=== PATIENT | female | born 1990 | race Caucasian/White ===

== ENCOUNTER 2023-06-03 00:10 | Emergency (ER) | payer BC, SELFPAY ==
[2023-06-03 00:10] VITALS: BMI 22.8
[2023-06-03 00:15] VITALS: BP 143/90
[2023-06-03 00:40] VITALS: BP 130/85
[2023-06-03 01:00] VITALS: BP 127/71
--- NOTE | 2023-06-03 01:39 | ED.GENMED ---
History of Present Illness
General
Chief Complaint: Allergic Reaction
Source: patient and spouse
Exam Limitations: none
Time Seen by Provider: 06/03/23 01:22
Nursing documentation reviewed up to this point in time: agreed with
Travel History
Have you had any contact with someone who has COVID-19?: No
Do you have any symptoms of coronavirus? Fever > 100 degrees, chills, cough, shortness of breath, sore throat, loss of taste or smell, muscle aches, or headache?: No
History of Present Illness
History of Present Illness:
This is a 32-year-old woman who underwent IVF procedure 1 week ago. She was started on progesterone suppositories 2 weeks ago. Other than this her only daily medication is levothyroxine.
For the past 2 days she complains of generalized hives, itching that are much worse at nighttime waking her from sleep. No history of similar episodes of hives in the past but she does admit to having 'sensitive skin' and uses Tide Free and clear
detergent. She does admit to occasionally using a fabric softener additive. She denies any new household products, no pets. No recent antibiotic use.
She denies cough no shortness of breath, no sore throat nor facial swelling. No abdominal pain, no nausea or vomiting, no diarrhea or constipation. No dysuria. No vaginal itching or discharge no bleeding.
She took Benadryl around 8:30 PM with moderate improvement but then awoke with generalized hives and itching.
She is scheduled for follow-up with her IVF specialist in the morning.
Past History
Past History
ED Past Medical History: Hypothyroidism
ED Past Surgical History: Cholecystectomy
Social History
Tobacco: Non-smoker
Alcohol: None
Drug: None
Personal:
Living: with family
Employment: Employed
Family History
Family History: Other (Noncontributory)
Phy Exam
Physical Exam
Physical Exam:
GENERAL: 32-year-old woman appears her stated age, awake and alert, appears mildly uncomfortable. Cooperative. Easily communicative. is accompanying.
EYE: anicteric
NECK: Supple, nontender, no meningismus, no significant adenopathy.
ENT: posterior pharynx is clear, oral mucosa is moist. No rhinorrhea. No angioedema.
CARDIAC: Regular rate and rhythm. no murmur.
LUNGS: Clear breath sounds bilaterally, no acute respiratory distress, no wheezes/rales/rhonchi
ABDOMEN: Soft, nondistended, without focal tenderness, normoactive BS.
NEUROLOGICAL: Alert and oriented x3, no focal neuro deficits. Gait is cano and steady.
SKIN: Warm and dry, skin intact. Generalized erythema with patchy urticarial rash globally to the posterior trunk, coalescent urticarial horizontal band anterior mid abdomen corresponding with waistband of sweatpants. Generalized erythema and
urticaria to bilateral arms and proximal lower legs.
MUSCULOSKELETAL: No C/C/E. peripheral pulses are full and equal b/l. No palpable tenderness.
PSYCH: Normal and appropriate interaction.
Course
Orders/Labs/Results
Orders:
Orders
06/03/23 01:37
Dexamethasone Sod Phosphate [Decadron] 10 mg IV NOW STA
Diphenhydramine [Benadryl] 50 mg IV NOW STA
Famotidine [Pepcid] 20 mg IV NOW STA
06/03/23 01:38
0.9% Sodium Chloride 500 ml [Nss] 500 ml IV BOLUS
Test Result ONCE
06/03/23 01:51
Beta HCG Quantitative Urgent
Comment: ADD ON
HCG, Serum Qualitative Screen Urgent
06/03/23 02:25
Add On- LAB Urgent
Tests Added?: quant HCG
Vital Signs
Initial and Last Documented VS:
Initial Vital Signs
Temp Pulse Resp BP Pulse Ox
98.0 F 99 16 143/90 100
06/03/23 00:15 06/03/23 00:15 06/03/23 00:15 06/03/23 00:15 06/03/23 00:15
Last Documented Vital Signs
Temp Pulse Resp BP Pulse Ox
98.0 F 99 16 128/71 97
06/03/23 00:15 06/03/23 00:15 06/03/23 00:15 06/03/23 04:00 06/03/23 04:00
MDM/Problems Addressed
Differential Diagnosis Includes:
Acute allergic reaction/generalized urticarial rash.
Rash worsens at nighttime after lying down to bed thus I question contact allergy related sheets, perhaps allergic response to fabric softener.
Other consideration is allergic reaction to progesterone suppositories but she denies vaginal itch nor irritation thus progesterone is causative agent is much less likely.
There is no evidence of anaphylaxis.
She remains hemodynamically stable.
Will treat acute urticarial reaction with an IV dose of Benadryl, Pepcid and will give an IV dose of Decadron as well.
Will continue to observe for response.
Patient underwent IVF procedure 1 week ago. Will check serum hCG.
*Pulse Oximetry
Patient hypoxic: no
*Critical Care Note
Total Time (30-74mins, 75-104mins- exclusive of procedures): Not Applicable
Update Note
Update Note:
06/03/2023 0451 AM
Patient reports near complete resolution of urticaria. No further itch. Resting comfortably.
hCG is positive with quantitative hCG at 72.6.
She has a follow-up appointment with her infertility specialist planned for tomorrow.
Recommend continuing once daily Zyrtec for at least the next 5 to 7 days.
Recommend she discontinue fabric softener and change the sheets on her bed.
Prompt follow-up with PCP.
Return precautions discussed.
ED Attending Note
-
Portions of this chart may have been created with voice recognition software.� Occasional wrong word or��sound alike� substitutions may have occurred due to the inherent limitations of voice recognition software.
Discharge Plan
Departure
Patient Disposition: Home (Routine Discharge)
Date of Disposition: 06/03/23
Time of Disposition: 04:49
Patient with high blood pressure during this ER visit?: No
Condition: Good
Discharge Problem:
Acute allergic reaction, Acute urticaria
Instructions: Hives (DC)
Prescriptions:
No Action
levothyroxine 50 mcg Tablet
50 mcg PO DAILY
progesterone micronized 100 mg Insert
200 mg VAGINAL BID
Referrals:
Gris Mcgowan, [Family Provider] - Call in 1-3 days for appt
Activity Restrictions/Additional Instructions:
Continue once daily Zyrtec 10 mg for at least the next 5 to 7 days.
Change the sheets on your bed and discontinue fabric softener use.
Follow-up with your infertility specialist as planned.
Interventions
Interventions:
*Risk Screen - Suicide Last Done: 06/03/23 00:15
*Neglect/Abuse Screening Last Done: 06/03/23 00:15
*ED COVID-19 Vaccine History Last Done: 06/03/23 00:15
ED- Cardiac Assessment Last Done: 06/03/23 00:43
ED- Pulmonary Assessment Last Done: 06/03/23 00:43
ED-Skin Assessment Last Done: 06/03/23 00:43
Discharge Date and Time
Print Language: GRENADIAN
[2023-06-03] MEDS: NSS 500 IV (01:56)
[2023-06-03] MEDS: BENADRYL 50 MG IV (01:57)
[2023-06-03] MEDS: PEPCID 20 MG IV (01:59)
[2023-06-03] MEDS: DECADRON 10 MG IV (01:59)
[2023-06-03 02:11] LABS: HCG, Serum Qualitative Screen Positive
[2023-06-03 03:17] LABS: Beta HCG Quantitative 72.61 mIU/ml
[2023-06-03 04:00] VITALS: BP 128/71
[2023-06-03 04:51] VITALS: BP 119/72
== END 2023-06-03 04:58 | disposition home or self-care (01) ==
LOC: EMR 00:10
PROVIDERS: EMERGENCY PHYSICIAN Emergency Medicine; FAMILY PHYSICIAN Internal Medicine
DX: L50.0 Allergic urticaria (principal); T78.40XA Allergy, unspecified, initial encounter
CPT/HCPCS: 99284; 96374; 96375 ×2; 96361; 84702; 84703